=== PATIENT | female | born 1970 | race Caucasian/White ===

== ENCOUNTER 2017-03-06 11:30 | Outpatient (RCR) | payer BC, OTHER ==
[2014-09-30 19:04] VITALS: BP 123/50
[~2017-03-06 11:30] MED LIST: DILAUDID 2MG TAB2 MG; DURAGESIC25 MCG/HR TOP; KETOROLAC10 MG PO; ROPINIROLE2 MG; VENLAFAXINE25 MG; ZOLOFT
== END 2017-03-11 | disposition home or self-care (01) ==
LOC: PT
DX: M75.42 Impingement syndrome of left shoulder (principal)